=== PATIENT | male | born 1965 | race Caucasian/White ===

== ENCOUNTER 2025-06-08 06:53 | Day surgery (SDC) | payer OTHER ==
[2025-06-08] MEDS: Lactated Ringers 1,000 ML IV SCH (07:17)
[2025-06-08] MEDS ORDERED: Propofol 200 MG/20 ML SDV ONE (08:37)
== END 2025-06-08 10:21 | disposition home or self-care (01) ==
LOC: DL.ENDO 06:53
PROVIDERS: ATTEND Internal Medicine Gastroenterology
DX: K52.9 Noninfective gastroenteritis and colitis, unspecified (principal); R79.89 Other specified abnormal findings of blood chemistry; E66.09 Other obesity due to excess calories; Z68.33 Body mass index [BMI] 33.0-33.9, adult
CPT/HCPCS: 45380; J7120; 00811